=== PATIENT | female | born 1935 | race Caucasian/White ===

== ENCOUNTER 2024-05-10 12:59 | Emergency (ER) | payer MEDICARE ==
[~2024-05-10] VITALS: Ht 170.2 cm; Wt 66.2 kg
[2024-05-10 13:15] VITALS: TEMP 97.8
[2024-05-10 13:27] LABS: BASOPHILS % 0.1 % (0.0-1.0); EOSINOPHILS % 0.5 % (0.0-6.0); HEMOGLOBIN 11.9 g/dL (12.0-16.0); LYMPHOCYTES # (AUTO) 1.4 (1.0-3.2); LYMPHOCYTES % 16.3 % (18.0-39.1); MEAN CORPUSCULAR HEMOGLOBIN 32.3 pg (28-32); MEAN CORPUSCULAR VOLUME 95.1 fL (81-99); MONOCYTES # (AUTO) 0.6 (0.2-0.8); MONOCYTES % 6.9 % (4.4-11.3); NEUTROPHILS # (AUTO) 6.4 (2.1-6.9); NEUTROPHILS % 75.8 % (38.7-80.0); PLATELET COUNT 199 x10e3/uL (140-360); RED BLOOD COUNT 3.68 x10e6/uL (3.6-5.1); RED CELL DISTRIBUTION WIDTH 12.5 % (11.7-14.4); WHITE BLOOD COUNT 8.49 x10e3/uL (4.8-10.8)
[2024-05-10] MEDS ORDERED: HEPARIN SOD (PORCINE) 5,000 UNIT/ML VIAL IV ONE (13:30)
[2024-05-10] MEDS ORDERED: HEPARIN SOD/DEXTROSE 5% 25000 UNIT/250 ML BAG IV SCH (13:30)
[2024-05-10] MEDS: SODIUM CHLORIDE 0.9% 1000ML 1,000 ML IV ONE (13:32)
[2024-05-10 13:48] LABS: ALBUMIN 4.6 g/dL (3.5-5.0); ALBUMIN/GLOBULIN RATIO 1.5 (0.8-2.0); ANION GAP 15.8 mmol/L (8-16); BILIRUBIN,TOTAL 1.1 mg/dL (0.2-1.2); CALCIUM 10.8 mg/dL (8.4-10.2); CREATININE, SERUM 0.82 mg/dL (0.57-1.11); POTASSIUM 3.8 mmol/L (3.5-5.1); TOTAL PROTEIN 7.7 g/dL (6.5-8.1)
[2024-05-10] MEDS ORDERED: NICARDIPINE 20MG/200ML PREMIX 200 ML ONE (14:00)
[2024-05-10] MEDS: NICARDIPINE 20MG/200ML PREMIX 200 ML IV SCH (14:05)
[2024-05-10 14:06] LABS: INR 0.99; PROTHROMBIN TIME 13.7 seconds (11.9-14.5)
[2024-05-10 14:07] LABS: PARTIAL THROMBOPLASTIN TIME 32.5 seconds (23.8-35.5)
[2024-05-10 14:12] VITALS: PULSE 89; RESP 18
[2024-05-10 14:46] VITALS: BP 184/75
[2024-05-10 15:05] VITALS: PULSE 79; RESP 18; O2SAT 98
== END 2024-05-10 15:09 | disposition other institution (70) ==
LOC: ER 13:25
DX: R53.1 Weakness (principal); I62.00 Nontraumatic subdural hemorrhage, unspecified; G93.9 Disorder of brain, unspecified; I48.91 Unspecified atrial fibrillation; I10 Essential (primary) hypertension; E78.5 Hyperlipidemia, unspecified; R94.31 Abnormal electrocardiogram [ECG] [EKG]
CPT/HCPCS: 36415; 70450; 71045; 80053; 83880; 84484; 85025; 85610; 85730; 93005; 99285; J7030

== ENCOUNTER → 2024-08-14 | Outpatient (REF) | payer MEDICARE | LOC: RAD 12:45 | PROVIDERS: ATTEND Internal Medicine | DX: M54.50 Low back pain, unspecified (principal) | CPT/HCPCS: 72100 ==

== ENCOUNTER → 2024-11-26 | Outpatient (REF) | payer MEDICARE | LOC: RAD 08:36 | PROVIDERS: ATTEND Internal Medicine | DX: I50.30 Unspecified diastolic (congestive) heart failure (principal) | CPT/HCPCS: 93306 ==